=== PATIENT | female | born 1995 | race Caucasian/White ===

== ENCOUNTER 2018-09-26 06:29 | Emergency (ER) | payer OTHER ==
[~2018-09-26] VITALS: Ht 157.5 cm; Wt 59.1 kg
[2018-09-26] MEDS ORDERED: ZOLO25TA PO (06:37)
[2018-09-26] MEDS ORDERED: MACR100C43 PO (06:37)
[2018-09-26] MEDS ORDERED: ACET-683 PO (06:37)
[2018-09-26 07:47] LABS: BASO % 0.2 % (0.0-1.0); EOS % 0.1 % (0.0-3.0); HEMATOCRIT 31.5 % (36.0-47.0); HEMOGLOBIN 10.1 g/dl (12.0-15.5); LYMPH % 5.6 % (24.0-44.0); MEAN CORPUSCULAR HEMOGLOBIN 28.1 pg (27.0-33.0); MEAN CORPUSCULAR HGB CONC 32.1 g/dl (32.0-36.5); MEAN CORPUSCULAR VOLUME 87.5 fl (80.0-96.0); MONO % 6.5 % (0.0-5.0); NEUTROPHILS # 9.6 10^3/uL (1.8-7.7); NEUTROPHILS % 87.2 % (36.0-66.0); PLATELET COUNT, AUTOMATED 509 10^3/uL (150-450)
[2018-09-26 07:48] LABS: LYMPH # 0.6 10^3/uL (1.5-6.5); MONO # 0.7 10^3/uL (0.0-0.8)
[2018-09-26 08:24] LABS: GLUCOSE, FASTING 101 MG/DL (70-100)
[2018-09-26 08:25] LABS: BLOOD UREA NITROGEN 13 MG/DL (7-18); CARBON DIOXIDE LEVEL 25 MEQ/L (21-32); CHLORIDE LEVEL 105 MEQ/L (98-107); GLOMERULAR FILTRATION RATE > 60.0 (>60); POTASSIUM SERUM 3.8 MEQ/L (3.5-5.1); SODIUM LEVEL 139 MEQ/L (136-145)
[2018-09-26 08:26] LABS: ALT/SGPT 16 U/L (12-78); BILIRUBIN,TOTAL 0.5 MG/DL (0.2-1.0); CALCIUM LEVEL 8.9 MG/DL (8.5-10.1)
[2018-09-26 08:27] LABS: ALBUMIN 3.7 GM/DL (3.2-5.2); BILIRUBIN,DIRECT 0.1 MG/DL (0.0-0.2); LIPASE 73 U/L (73-393); TOTAL PROTEIN 7.6 GM/DL (6.4-8.2)
--- NOTE | 2018-09-26 08:53 | REP ---
PELVIC SONOGRAPHY: HISTORY: Fever, abdominal pain . Rule out retained products of conception. FINDINGS: Transabdominal and endovaginal scanning are performed. Uterine dimensions are 7.9 x 5.2 x 7.3 cm. Endometrial echo is 1.5 cm thick. There is a somewhat nodular slightly hyperechoic 1.5 x 0.9 x 1.1 cm area in the fundal endometrium with Doppler blood flow. This may be an area of retained products of conception. There is a tiny sliver of fluid. Normal ovaries are seen. Right ovary dimensions are 2.9 x 1.6 x 2.4 cm. The left ovary measures 3.6 x 1.8 x 2.3 cm. Doppler flow is normal to the ovaries with resistive indices 0.48 on the right and 0.48 on the left. IMPRESSION: There is a 1.5 cm slightly hyperechoic nodular area in the fundal endometrium with blood flow. I cannot exclude retained products of conception. Electronically Signed by Joe Pandya MD 09/26/2018 10:41 A
[2018-09-26] MEDS ORDERED: cefTRIAXone SOD 1 GM in D5W MINI-BAG PLUS 50 ML IV ONE (09:30)
[2018-09-26] MEDS ORDERED: BACT800T5 PO (11:06)
[2018-09-26 11:40] LABS: HCG, SERUM QUANTITATIVE < 1.0 MIU/ML
[2018-09-26] MEDS ORDERED: ACETAMINOPHEN TAB 650MG DOSE (2X325MG) PO ONE (12:30)
[2018-09-26 12:50] VITALS: BP 110/66
--- NOTE | 2018-09-29 20:34 | ED PDOC ---
Post-Departure Follow-Up pelvic us faxed to [facility] - dr bonilla for fu Louis Franco MD Sep 29, 2018 20:34
== END 2018-09-26 13:22 | disposition home or self-care (01) ==
LOC: M ED 06:29
DX: N10 Acute pyelonephritis (principal); N39.0 Urinary tract infection, site not specified; R10.30 Lower abdominal pain, unspecified; R50.9 Fever, unspecified; R10.9 Unspecified abdominal pain; R11.2 Nausea with vomiting, unspecified; F41.9 Anxiety disorder, unspecified; F32.9 Major depressive disorder, single episode, unspecified; Z79.899 Other long term (current) drug therapy
CPT/HCPCS: 76830; 76856; 80048; 80076; 81001; 83690; 84702; 85025; 87086; 93976; 96365; 99284; J0696

== ENCOUNTER → 2018-10-23 | Outpatient (CLI) | payer OTHER ==
[~2018-10-23] MED LIST: ACET-683 PO; BACT800T5 PO; MACR100C43 PO; ZOLO25TA PO
--- NOTE | 2018-10-23 16:41 | REP ---
CT of the abdomen pelvis without contrast Indication: Kidney stones. Comparison: None Technique: Axial CT of the abdomen pelvis was performed from the lung bases to the proximal femurs. No intravenous or oral contrast was administered. Coronal and sagittal soft tissue reformatted images were provided as well as axial lung reformats of the lung bases. Findings: The lung bases are clear. The heart size is normal. There is no pleural or pericardial effusion. Within the limitation of a noncontrast enhanced CT examination, the unenhanced liver, underdistended gallbladder, spleen, adrenal glands and pancreas are within normal limits. The abdominal aorta is normal in caliber. There is no gross retroperitoneal or mesenteric lymphadenopathy. Unopacified stomach, small and large bowel loops are normal in caliber. There is no intraperitoneal free air. There are ill-defined tiny hyperdensities within the mid and lower pole of the right kidney which may represent nonobstructing right renal calculi. There is no hydronephrosis or hydroureter. Urinary bladder is underdistended. There is no urinary bladder calculus. The uterus is present. There is trace pelvic free fluid, within physiologic limits. No suspicious focal osseous lesion is identified. Impression: Tiny, ill-defined nonobstructing calculi within the right kidney. No hydronephrosis or hydroureter. No urinary bladder calculus. Electronically Signed by Emerita Acosta MD 10/23/2018 04:33 P
== END ==
LOC: M RAD 15:38
PROVIDERS: ATTEND Family Medicine
DX: N20.0 Calculus of kidney (principal)

== ENCOUNTER 2018-11-10 12:10 | Emergency (ER) | payer OTHER ==
[~2018-11-10] VITALS: Ht 157.5 cm; Wt 56.4 kg
[2018-11-10] MEDS ORDERED: ABIL1TAB13 PO (12:17)
[2018-11-10 12:47] LABS: BASO # 0.1 10^3/uL (0.0-0.2); BASO % 0.8 % (0.0-1.0); EOS # 0.1 10^3/uL (0.0-0.5); EOS % 1.9 % (0.0-3.0); HEMATOCRIT 34.1 % (36.0-47.0); HEMOGLOBIN 10.7 g/dl (12.0-15.5); LYMPH # 1.5 10^3/uL (1.5-5.0); LYMPH % 23.1 % (24.0-44.0); MEAN CORPUSCULAR HEMOGLOBIN 25.7 pg (27.0-33.0); MEAN CORPUSCULAR HGB CONC 31.4 g/dl (32.0-36.5); MONO # 0.6 10^3/uL (0.0-0.8); MONO % 9.4 % (0.0-5.0); NEUTROPHILS # 4.1 10^3/uL (1.5-8.5); NEUTROPHILS % 64.6 % (36.0-66.0); PLATELET COUNT, AUTOMATED 420 10^3/uL (150-450); RED BLOOD COUNT 4.16 10^6/uL (4.00-5.40); WHITE BLOOD COUNT 6.4 10^3/uL (4.0-10.0)
[2018-11-10 13:11] LABS: ALT/SGPT 29 U/L (12-78); BILIRUBIN,DIRECT < 0.1 MG/DL (0.0-0.2); BILIRUBIN,TOTAL 0.3 MG/DL (0.2-1.0); BLOOD UREA NITROGEN 10 MG/DL (7-18); CALCIUM LEVEL 9.2 MG/DL (8.5-10.1); CARBON DIOXIDE LEVEL 21 MEQ/L (21-32); CHLORIDE LEVEL 111 MEQ/L (98-107); CREATININE FOR GFR 0.84 MG/DL (0.55-1.30); GLOMERULAR FILTRATION RATE > 60.0 (>60); GLUCOSE, FASTING 80 MG/DL (70-100); LIPASE 106 U/L (73-393); POTASSIUM SERUM 4.1 MEQ/L (3.5-5.1); SODIUM LEVEL 141 MEQ/L (136-145); TOTAL PROTEIN 7.6 GM/DL (6.4-8.2)
[2018-11-10] MEDS ORDERED: NS 1,000 ML IV ONE (13:15)
[2018-11-10] MEDS ORDERED: ONDANSETRON 4MG/2ML VIAL (J2405) IV ONE (13:15)
[2018-11-10 13:23] LABS: AMYLASE 78 U/L (25-115)
[2018-11-10] MEDS ORDERED: ZOFR4TAB16 PO (15:09)
[2018-11-10 15:15] VITALS: BP 118/79
== END 2018-11-10 15:25 | disposition home or self-care (01) ==
LOC: M ED 12:10 → EDBD 12:10 → M ED 15:25
DX: R11.2 Nausea with vomiting, unspecified (principal); Z79.899 Other long term (current) drug therapy
CPT/HCPCS: 80048; 80076; 81001; 82150; 83690; 84702; 85025; 93041; 96374; 99285; J2405

== ENCOUNTER → 2019-12-31 | Outpatient (REF) | payer OTHER ==
[~2019-12-31] MED LIST changes: +ABIL1TAB13 PO; +ZOFR4TAB16 PO
[2019-12-31 13:14] LABS: BASO # 0.1 10^3/uL (0.0-0.2); EOS # 0.1 10^3/uL (0.0-0.5); EOS % 2.1 % (0.0-3.0); HEMOGLOBIN 12.7 g/dl (12.0-15.5); LYMPH # 1.6 10^3/uL (1.5-5.0); LYMPH % 30.2 % (24.0-44.0); MEAN CORPUSCULAR HEMOGLOBIN 28.7 pg (27.0-33.0); MEAN CORPUSCULAR HGB CONC 32.6 g/dl (32.0-36.5); MEAN CORPUSCULAR VOLUME 88.2 fl (80.0-96.0); MONO # 0.4 10^3/uL (0.0-0.8); MONO % 7.5 % (0.0-5.0); NEUTROPHILS # 3.1 10^3/uL (1.5-8.5); NEUTROPHILS % 59.2 % (36.0-66.0); PLATELET COUNT, AUTOMATED 366 10^3/uL (150-450); RED BLOOD COUNT 4.42 10^6/uL (4.00-5.40); WHITE BLOOD COUNT 5.2 10^3/uL (4.0-10.0)
[2019-12-31 13:33] LABS: ERYTHROCYTE SEDIMENTATION RATE 10 mm/hr (0-20)
[2019-12-31 13:50] LABS: TOTAL PROTEIN,RANDOM URINE 18.3 MG/DL (0.0-12.0)
[2019-12-31 13:57] LABS: ALBUMIN 4.3 GM/DL (3.2-5.2); ALT/SGPT 12 U/L (12-78); BILIRUBIN,TOTAL 0.4 MG/DL (0.2-1.0); BLOOD UREA NITROGEN 15 MG/DL (7-18); CALCIUM LEVEL 9.2 MG/DL (8.5-10.1); CARBON DIOXIDE LEVEL 24 MEQ/L (21-32); CHLORIDE LEVEL 106 MEQ/L (98-107); COMPLEMENT C3 110 MG/DL (90-180); COMPLEMENT C4 20 MG/DL (10-40); CREATININE FOR GFR 0.81 MG/DL (0.55-1.30); FREE T4 1.24 NG/DL (0.76-1.46); GLOMERULAR FILTRATION RATE > 60.0 (>60); GLUCOSE, FASTING 76 MG/DL (70-100); RHEUMATOID FACTOR QUANT < 10.0 IU/ML (<15.0); SODIUM LEVEL 137 MEQ/L (136-145); TOTAL PROTEIN 7.6 GM/DL (6.4-8.2)
[2019-12-31 13:58] LABS: THYROID PEROXIDASE ANTIBODY 36.2 U/ML (<60.0)
[2020-01-05 20:11] LABS: ANTI DS-DNA AB Negative (Negative); BETA-2 GLYCOPROTEIN I ABY IGA <9 (0-25); BETA-2 GLYCOPROTEIN I ABY IGG <9 (0-20); BETA-2 GLYCOPROTEIN I ABY IGM <9 (0-32); CARDIOLIPIN IGA ANTIBODY <9 APL U/mL (0-11); CARDIOLIPIN IGG ANTIBODY <9 GPL U/mL (0-14); CARDIOLIPIN IGM ANTIBODY 15 MPL U/mL (0-12); CYCLIC CITRULLINATED PEPTIDE 8 units (0-19); HOMOCYST(E)INE SERUM 10.7 umol/L (0.0-14.5); PROTEIN C FUNCTIONAL ACTIVITY 125 % (73-180); PROTEIN S FUNCTIONAL ACTIVITY 81 % (63-140); RNP ANTIBODY < 0.2 AI (0.0-0.9); SMITHS ANTIBODY < 0.2 AI (0.0-0.9); SSA SJOGRENS A <0.2 AI (0.0-0.9); SSB SJOGRENS B <0.2 AI (0.0-0.9)
== END ==
LOC: M SFHCRHEU 09:59
PROVIDERS: ATTEND Internal Medicine
DX: R76.8 Other specified abnormal immunological findings in serum (principal); M25.50 Pain in unspecified joint; R40.4 Transient alteration of awareness; I73.00 Raynaud's syndrome without gangrene

== ENCOUNTER → 2020-08-20 | Outpatient (REF) | payer OTHER | LOC: M LAB REF 11:35 | PROVIDERS: ATTEND Physician Assistant | DX: R30.0 Dysuria (principal) ==